=== PATIENT | female | born 1995 | race African-American/Black ===

== ENCOUNTER 2023-11-25 09:55 | Outpatient (RCR) | payer OTHER, SELFPAY ==
--- NOTE | 2023-11-25 11:38 | OT.OP.DC ---
Visit Care Team Role Provider Type Gus Espinoza MD Family Provider Non-Staff Primary Care Provider Address: [address] [place] [address], [id number] Email: Yonatan Elena Attending Provider Non-Staff Referring Provider Address: [address] [place] [address], [place], [address] Email: OT Outpatient OT Outpatient Adult Evaluation Start: 11/25/23 10:58 Freq: Status: Active Protocol: Document 11/25/23 10:59 AMS (Rec: 11/25/23 11:37 AMS [id number]) General Information - Adult Visit Information Insurance Information Prime Session Time Visit Start Time 10:15 Visit Stop Time 10:45 Setting Treatment Setting Outpatient Care Visit Type Note Type Initial Evaluation Identification Identification Confirmed Yes Identification Confirmed By Self Assessment/Plan Assessment Treatment Assessment Nathalie is 28 years old, R hand dominant, and referred to outpatient OT secondary to diagnosis of CTS. 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 She was given B night splints for CTS and medication for swelling approximately 2 weeks ago. Pain Assessment Grid was completed; indication of 7 out of 10 on pain scale relative to bilateral shoulders and R hip. Nathalie indicated that she has outpatient PT (which is addressing these areas of pain /discomfort). Hand/Wrist Pain Assessment Grid was also completed; indication of 6-7 out of 10 on pain scale relative to bilateral volar/ dorsal wrists, bilateral volar /dorsal thumbs, and volar/ dorsal fingers PIPJs of 2-5 digits bilaterally to tips of fingers. QuickDASH UE Outcome Measure Score = 68.18. QuickDASH Work Module Score ( logistics, carrying boxes, typing - going to be getting a gel pad, at home cooking- Mac and Cheese/grating cheese, use of cast iron pans, carries grocery bags across forearms) = 75.00. (-) B Tinel's; (-) reverse Phalen's test. Goniometer measurements = 0-60 degrees bilateral active wrist flexion; 0-62 degrees active R wrist ext; 0-66 degress active L wrist ext; 0- 30 degrees active R wrist UD; 0-26 degrees active L wrist UD ; 0-20 degrees active L wrist [address]; 0-[address] R [address]. MMT Findings= 4+/5 MMT R wrist flex vs 4-/5 MMT L wrist flex; 3+/5 MMT R wrist ext vs 4/5 MMT L wrist ext; 4+ /[address] vs 4-/[address]; 4/5 MMT R wrist UD vs 4+/5 MMT L wrist UD. Dynamometer II Plug Making Operator Strength Findings= 53.0# of force R front end web developer (compared to 30-34 y.o. women 78.7 +/- 19.2) vs 30.0# of force L front end web developer (compared to 30-34 y.o. women 68.0 +/- 17.7 ). Dynamometer II Plug Making Operator Strength Findings w/ Elbow Ext = 60.0# of force R front end web developer vs 40. 0# of force L front end web developer. Pinchometer Strength Findings: 22.0# of force R lateral garcia pinch (compared to 30-34 y.o. women 18.7 +/- 3.0) vs 15.0# of force L lateral garcia pinch ( compared to 30-34 y.o. women 17.8 +/- 3.6); 13.0# of force R 3-jaw pinch (compared to 30- 34 y.o. women 19.3 +/- 5.0) vs 8.0# of force L 3-jaw pinch ( compared to 30-34 y.o. women 18.1 +/- 4.8); 10.0# of force R tip pinch (compared to 30-34 y.o. women 12.6 +/- 3.0) vs 8 .0# of force L tip pinch ( compared to 30-34 y.o. women 11.7 +/- 2.8). (-) tightness bilateral hook fist. Instructed in passive wrist stretches w/ reported preference for elbow flex; rec 20-30 sec hold each x 1 rep daily; median nerve glides x 5 reps daily; myofascial thumb adductor stretch x 1, bilateral, w/ 20-30 sec stretch daily; carpal ligament myofascial stretch at wall x 1 bilateral, w/ 20-30 sec hold daily. Nathalie denied questions and/or need for additional appointments; rec discharge from outpatient OT at this time. Plan Patient Recommendations Discharge from Occupational Therapy Functional Wrist/Hand Scan Hand Side Sensory Assessment Sensory Profile2
== END 2023-12-05 08:40 | disposition home or self-care (01) ==
LOC: OT 09:55
PROVIDERS: Family Provider Student in an Organized Health Care Education/Training Program; PCP Student in an Organized Health Care Education/Training Program
DX: G56.00 Carpal tunnel syndrome, unspecified upper limb (principal)
CPT/HCPCS: 97165

== ENCOUNTER → 2024-03-09 11:11 | Outpatient (CLI) | payer OTHER, SELFPAY ==
[2024-03-09 11:49] LABS: Add Manual Diff / Slide Review NO; Basophils Absolute Auto 100 /uL (0-100); Basophils Percent Auto 0.5 % (0-2); Eosinophils Absolute Auto 100 /uL (0-450); Eosinophils Percent Auto 0.7 % (2-4); Hematocrit 36.6 % (36-46); Hemoglobin 12.5 g/dL (12.0-16.0); Lymphocytes Absolute Auto 2400 /uL (1100-4500); Lymphocytes Percent Auto 21.1 % (25-40); Mean Corpuscular HGB Conc 34.1 % (30-36); Mean Corpuscular Hemoglobin 27.3 PG (26-34); Mean Corpuscular Volume 79.9 fL (80-100); Monocytes Absolute Auto 700 /uL (0-900); Monocytes Percent Auto 6.4 % (3-14); Neutrophils Absolute Auto 8000 /uL (1500-7000); Neutrophils Percent Auto 71.3 % (50-75); Platelet Count 374 X10^3/uL (150-400); Red Blood Cell Count 4.59 X10^6/uL (4.0-5.2); Red Cell Distribution Width 14.3 % (11.6-14.8); White Blood Cell Count 11.2 X10^3/uL (4.5-11.0)
[2024-03-09 12:42] LABS: Hepatitis B Surface Antigen NEGATIVE s/c (NEGATIVE); Rubella Antibody IgG 74.4 IU/mL (>15)
[2024-03-09 12:58] LABS: HIV 1 & 2 Ab/Ag 4th Gen Combo NEGATIVE (NEGATIVE); Hep C Virus Ab w/Reflex Quant NEGATIVE s/c (NEGATIVE)
[2024-03-10 09:08] LABS: Varicella IgG Antibody Reactive (Non Reactive)
[2024-03-11 06:07] LABS: RPR Screen Non Reactive (Non Reactive)
== END ==
PROVIDERS: Family Provider Student in an Organized Health Care Education/Training Program; PCP Student in an Organized Health Care Education/Training Program; Referring Provider Family Medicine; Visit Provider Family Medicine
DX: Z34.01 Encounter for supervision of normal first pregnancy, first trimester (principal); Z3A.01 Less than 8 weeks gestation of pregnancy
CPT/HCPCS: 36415; 80055; 86787; 86803; 86850; 86900; 86901; 87389

== ENCOUNTER → 2024-06-02 11:51 | Outpatient (CLI) | payer OTHER, SELFPAY ==
--- NOTE | 2024-06-02 11:52 | DI.US.S_ITS ---
PROCEDURE: US OB >= 14 WEEKS FETUS INDICATIONS: Anatomy Scan Complete OUTSIDE/PRIOR DATING DATA: Last menstrual period (LMP): 01/15/24. LMP-based estimated date of delivery (STEVEN): 10/21/24. First dating scan (date and location): 03/09/24. Estimated date of delivery (STEVEN) from first dating scan: 10/19/24. The calculations are made using the most accurate STEVEN of 10/19/24. TECHNIQUE: Real-time scanning was performed of the fetus, with image documentation and biometric measurements. Endovaginal scanning: Not needed COMPARISON: None. FINDINGS: General: A single living intrauterine gestation is present. Presentation: Breech. Placenta: Placental position is posterior , without previa. Amniotic fluid index: 18.0 cm, normal range is 5-24 cm. Single deepest vertical pocket is 5.1 cm. heart rate: 131 beats per minute. Maternal cervical canal: 2.9 cm long. Normal lower limit is 2.5 cm. biometrics: Biparietal diameter: 5.0 cm, 21 weeks 2 days Head circumference: 18.8 cm, 21 weeks 1 day Abdominal circumference: 16.3 cm, 21 weeks 3 days Femur length: 3.4 cm, 20 weeks 4 days Clinically estimated gestational age: 19 weeks 6 days Composite gestational age from present scan: 21 weeks 1 day, appropriate interval growth. Estimated weight and percentile: 395 g, 96 percentile Anatomic survey: Neuro: Ventricles are non-dilated at less than 10 mm. Cisterna magna is normal at 3-11 mm. Cerebellum is normal in size and morphology. Nuchal skin fold: Normal at less than 6 mm between 14-21 weeks gestational age. Face: Nose and lips, facial profile are normal. Spine: No evidence for spina bifida. Heart: 4-chambered heart is present, with normal ventricular outflow tracts. Diaphragm: Diaphragm is intact. Stomach: Left-sided stomach is present. Kidneys: No hydronephrosis. Normal is less than 5 mm in 2nd trimester, less than 7 mm in 3rd trimester. Cord: 3-vessel cord has orthotopic insertion. Bladder: Normal in size. Extremities: All 4 extremities identified. IMPRESSION: Appropriate interval growth. However, current estimated weight is at the 96th percentile for gestational age and therefore limited biometric follow-up for possible macrosomia in several weeks likely is warranted. No anomaly seen. Breech presentation. We strive to produce accurate, complete, and clear reports of imaging services. To assist us in improving patient care, this report was composed using standard report templates and voice recognition software. Therefore, it may contain abnormal punctuation, insertions and/or omissions. Occasional wrong-word or sound-alike substitutions may occur. Though we review the report and make efforts to correct it, we do recommend that the report be read carefully in proper context to recognize any text inaccuracies. Dictated by: Ziyad Martini M.D. on 06/03/2024 at 9:11 Approved by: Ziyad Martini M.D. on 06/03/2024 at 9:17
== END ==
PROVIDERS: Family Provider Student in an Organized Health Care Education/Training Program; PCP Student in an Organized Health Care Education/Training Program; Referring Provider Family Medicine; Visit Provider Family Medicine
DX: Z34.92 Encounter for supervision of normal pregnancy, unspecified, second trimester (principal); Z3A.21 21 weeks gestation of pregnancy
CPT/HCPCS: 76811

== ENCOUNTER → 2024-06-30 10:57 | Outpatient (CLI) | payer OTHER, SELFPAY ==
[2024-06-30 12:50] LABS: Hematocrit 33.6 % (36-46); Hemoglobin 11.6 g/dL (12.0-16.0)
[2024-06-30 13:06] LABS: HEMOLYSIS < 15 (0-50); Iron 75 ug/dL (37-170)
[2024-06-30 13:09] LABS: GTT (PREG) 1 Hour PP 50gm Dose 90 mg/dL (76-139)
[2024-06-30 13:09] LABS: Magnesium 1.7 mg/dL (1.6-2.3)
[2024-06-30 13:17] LABS: Percent Iron Saturation 17 % (15-50); Total Iron Binding Capacity 433 ug/dL (265-497); Transferrin 369 mg/dL (206-381)
[2024-06-30 13:43] LABS: Ferritin 8 ng/mL (6-137)
== END ==
PROVIDERS: Family Provider Student in an Organized Health Care Education/Training Program; PCP Student in an Organized Health Care Education/Training Program; Referring Provider Family Medicine; Visit Provider Family Medicine
DX: Z34.00 Encounter for supervision of normal first pregnancy, unspecified trimester (principal); Z3A.24 24 weeks gestation of pregnancy
CPT/HCPCS: 36415; 82728; 82950; 83540; 83550; 83735; 85014; 85018

== ENCOUNTER → 2024-07-15 12:49 | Outpatient (CLI) | payer OTHER, SELFPAY ==
--- NOTE | 2024-07-15 12:50 | DI.US.S_ITS ---
PROCEDURE: US OB LIMITED INDICATIONS: MACROSOMIA DURING OUTSIDE/PRIOR DATING DATA: Last menstrual period (LMP): 01/15/2024. LMP-based estimated date of delivery (STEVEN): 10/21/2024 First dating scan (date and location): 03/09/2024. Estimated date of delivery (STEVEN) from first dating scan: 10/19/2024. The calculations are made using the working STEVEN of 10/21/2024. TECHNIQUE: Real-time scanning was performed of the fetus, with image documentation. Endovaginal scanning: No COMPARISON: None. FINDINGS: A single living intrauterine gestation is present. Presentation: Vertex. Placenta: Placental position is posterior, without previa. Amniotic fluid index: 17.5 cm, normal range is 5-24 cm. Single deepest vertical pocket is 5.6 cm. heart rate: 135 beats per minute. Maternal cervical canal: Not well seen BPD: 6.9 cm, 27 week 6 day HC: 25.3 cm, 27 week 3 day AC: 21.6 cm, 26 week 1 day FL: 4.9 cm, 26 week 4 day Clinically estimated gestational age: 26 week 0 day Estimated gestational age from initial scan: 27 week 0 day EGA: 944 g, 60 percentile. IMPRESSION: Single live intrauterine consistent with 26 week 0 day gestation Approved by: Johnny Ritchie M.D. on 07/15/2024 at 16:41
== END ==
PROVIDERS: Family Provider Student in an Organized Health Care Education/Training Program; PCP Student in an Organized Health Care Education/Training Program; Referring Provider Family Medicine; Visit Provider Family Medicine
DX: O36.62X0 Maternal care for excessive fetal growth, second trimester, not applicable or unspecified (principal); Z3A.26 26 weeks gestation of pregnancy
CPT/HCPCS: 76815

== ENCOUNTER → 2024-09-29 10:39 | Outpatient (CLI) | payer OTHER, SELFPAY ==
[2024-09-30 12:21] LABS: Strep Grp B PCR NEG for Grp B Strep
== END ==
PROVIDERS: Family Provider Student in an Organized Health Care Education/Training Program; PCP Student in an Organized Health Care Education/Training Program; Visit Provider Family Medicine
DX: Z34.93 Encounter for supervision of normal pregnancy, unspecified, third trimester (principal); Z3A.36 36 weeks gestation of pregnancy
CPT/HCPCS: 87653

== ENCOUNTER 2024-10-21 08:02 | Inpatient (IN) | payer OTHER, SELFPAY ==
[2024-10-21] VITALS (9 sets, daily range): BP systolic 137–191; BP diastolic 64–113; PULSE 51–87
[2024-10-21 09:37] LABS: Add Manual Diff / Slide Review NO; Hematocrit 37.3 % (36-46); Hemoglobin 12.5 g/dL (12.0-16.0); Lymphocytes Absolute Auto 1700 /uL (1100-4500); Mean Corpuscular HGB Conc 33.4 % (30-36); Mean Corpuscular Hemoglobin 23.5 PG (26-34); Mean Corpuscular Volume 70.3 fL (80-100); Platelet Count 306 X10^3/uL (150-400)
[2024-10-21 09:44] LABS: Alanine Aminotransferase 12 IU/L (<35); Albumin 3.8 g/dL (3.5-5.0); Albumin Globulin Ratio 1.1 (1.0-2.8); Alkaline Phosphatase 220 U/L (38-126); Blood Urea Nitrogen 4 mg/dL (7-17); Calcium 9.2 mg/dL (8.4-10.2); Carbon Dioxide 19 mmol/L (22-32); Chloride 106 mmol/L (98-107); Estimated Glomerular Filt Rate > 60 mL/min (>60); Globulin 3.6 g/dL (1.7-4.1); Glucose 107 mg/dL (70-99); HEMOLYSIS < 15 (0-50); Potassium 3.5 mmol/L (3.4-5.1); Sodium 136 mmol/L (137-145); Total Protein 7.4 g/dL (6.3-8.2); Uric Acid 5.3 mg/dL (2.5-6.2)
--- NOTE | 2024-10-21 09:51 | PM.OBHP.IH.1 ---
OB HPI Date/Time Date of admission: 10/21/24 Date Patient Seen: 10/21/24 History of Present Condition Chief complaint: INDUCTION STEVEN Calculator Estimated Delivery Date Method Current WG Current Estimate 10/21/24 LMP (Certain) 40w 0d Other Estimates 10/19/24 Ultrasound #1 40w 2d Estimated Gestational Age (weeks): 40 : 1 Para: 0 Narrative: 29-year-old at GA 40+0 weeks presenting for eIOL. Endorses normal movement. Denies vaginal bleeding or denies leakage of fluid. course notable for obesity, recent moderately elevated BP at most recent visit yesterday. care: good care Ultrasounds: normal 1st trimester US and normal mid trimester US Preadmission Labs Last OB Lab Results: Blood Type O Positive Today, 08:45 Antibody Screen Negative Today, 08:45 Hct, (36-46) 32.8 % L Today, 16:18 Hgb, (12.0-16.0) 11.2 g/dL L Today, 16:18 Hep Bs Antigen, (NEGATIVE) Negative s/c 03/09/24, 11:19 Hepatitis C Antibody, (NEGATIVE) Negative s/c 03/09/24, 11:19 Rubella Antibody, (>15) 74.4 IU/mL 03/09/24, 11:19 VZV IgG Antibody, (Non Reactive) Reactive 03/09/24, 11:19 Glucose 1 Hr 50 gm, (76-139) 90 mg/dL 06/30/24, 11:02 Group B Strep (PCR) Neg for grp b strep 09/29/24, 10:39 Evaluation Evaluation Baseline heart rate: 120 Variability: Moderate (6-25) monitor accelerations: Present Monitor Decelerations: Absent Category of Tracing: Reactive Status: Category l Dilation: 1-2 cm Effacement: 40-50% station: -3 Position of cervix: posterior Consistency: soft Hooks score: 4 PFSH Medical History (Updated 10/20/24 @ 10:39 by Ruiz Palm MD) 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 Surgical History (Updated 03/04/24 @ 08:42 by Kiki Whitley RN) History of lingual frenotomy [place] teeth extracted Social History marital status: unmarried,living together household members: significant other and family (S/O's sister) lives independently: Yes caregiver/support person: No housing: house pets and animals: Yes (dogs, cat; pt doesn't manage litter box) education level: college (some college) 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[employer], 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) current occupational exposures/hazards: No special erica needs: No travel 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: 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[place], 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) seatbelt use: always water heater temp set < 120 deg: Yes working smoke detector in home: Yes fire extinguisher in home: Yes carbon monox detector in home: Yes firearms in home: Yes firearms unloaded and locked: Yes do you feel safe at home: Yes Smoking Status: Never smoker second hand exposure: No alcohol intake: former (~2 glasses wine/week when not ) substance use type: does not use during the past year weight has: other (wide fluctuations) well-balanced diet: rarely or never daily servings fruits/ve-1 caffeine: Yes (aware of 200mg limit) Type(s) of exercise: resistance training Meds Home Medications and Allergies Home Medications ?Medication ?Instructions ?Recorded ?Confirmed ?Type vit no.95-ferrous 1 tab PO DAILY 03/04/24 10/21/24 History fumarate 28 mg-folic acid 800 mcg tablet ( Multivitamins) vitamin D3 25 mcg (1,000 unit)-vit 2 tab PO DAILY 03/04/24 10/21/24 History K2 90 mcg disintegrating tablet (D3 Plus K2 Dots) ondansetron 4 mg disintegrating 4 mg PO Q8H PRN nausea and 04/07/24 10/21/24 Rx tablet vomiting #20 tabs pyridoxine (vitamin B6) 50 mg 50 mg PO TID #90 tabs 04/07/24 10/21/24 Rx tablet ferrous sulfate 325 mg (65 mg 325 mg PO Q OTHER DAY #60 tabs 08/03/24 10/21/24 Rx iron) tablet omeprazole 20 mg capsule,delayed 20 mg PO BID #60 caps 09/29/24 10/21/24 Rx release Allergies Allergy/AdvReac Type Severity Reaction Status Date / Time Penicillins Allergy Intermediate Hives Verified 10/21/24 10:41 Review of Systems Review of Systems ROS: Yes All systems reviewed with the patient and are negative except as otherwise documented OB Exam Narrative Exam Narrative: General: Well-nourished, no distress HEENT: NC/AT, EOMI, moist mucous membranes CV: RRR, normal S1 S2, no m/g/r Resp: CTAB Abd: Gravid, soft, NTND, +BS Ext: Full ROM, no edema Skin: No rash or lesions Neuro: A&O x3, normal tone, no focal deficits Objective Labs 10/21/24 16:18 10/21/24 16:18 Labs: Laboratory Results - last 24 hr 10/21/24 08:45 WBC 8.9 RBC 5.30 H Hgb 12.5 Hct 37.3 MCV 70.3 L MCH 23.5 L MCHC 33.4 RDW 15.8 H Plt Count 306 Neut % (Auto) 76.8 H Lymph % (Auto) 19.4 L [place] % (Auto) 3.0 Eos % (Auto) 0.3 L Baso % (Auto) 0.5 Neut # (Auto) 6800 Lymph # (Auto) 1700 [place] # (Auto) 300 Eos # (Auto) 0 Baso # (Auto) 0 Sodium 136 L Potassium 3.5 Chloride 106 Carbon Dioxide 19 L BUN 4 L Creatinine 0.54 Estimated GFR > 60 BUN/Creatinine Ratio 7.4 Glucose 107 H Uric Acid 5.3 Calcium 9.2 Total Bilirubin 1.2 AST 26 ALT 12 Alkaline Phosphatase 220 H Total Protein 7.4 Albumin 3.8 Globulin 3.6 Albumin/Globulin Ratio 1.1 Assessment and Plan Assessment and Plan Assessment and Plan narrative: 29-year-old at GA 40+0 weeks presenting for eIOL. notable for obesity, late onset moderately elevated BP. -admit to L&D -cervical ripening with misoprostol q4h -GBS negative, ppx not indicated -pain control prn if desired by patient -PPH risk low -VTE risk low, SCDs with epidural -anticipate vaginal delivery Time-Based Coding :: 20 minutes spent with patient and on the chart (including review of chart, obtaining history, exam, reviewing outside data, placing orders, documenting exam and treatment plan, and counseling patient) on 10/21/2024.
[2024-10-21 11:46] LABS: Protein (Total) Urine Random 13 mg/dL (0-12); Protein Creatinine Ratio Urine 0.29 GRAM/24H
[2024-10-21] MEDS: LABETALOL 20 MG/4 ML SYRINGE IV ×2 (14:53→19:34)
[2024-10-21] MEDS: ACETAMINOPHEN 325 MG TABLET 975 MG PO (15:27)
[2024-10-21] MEDS: LABETALOL 20 MG/4 ML SYRINGE 40 MG IV ×2 (16:12→20:19)
[2024-10-21 16:28] LABS: Add Manual Diff / Slide Review NO; Hematocrit 32.8 % (36-46); Hemoglobin 11.2 g/dL (12.0-16.0); Lymphocytes Absolute Auto 1800 /uL (1100-4500); Mean Corpuscular HGB Conc 34.0 % (30-36); Mean Corpuscular Hemoglobin 23.8 PG (26-34); Mean Corpuscular Volume 70.0 fL (80-100); Platelet Count 287 X10^3/uL (150-400)
[2024-10-21] MEDS: LABETALOL 20 MG/4 ML SYRINGE 80 MG IV (16:35)
[2024-10-21 16:42] LABS: Alanine Aminotransferase 11 IU/L (<35); Albumin 3.1 g/dL (3.5-5.0); Albumin Globulin Ratio 1.0 (1.0-2.8); Alkaline Phosphatase 187 U/L (38-126); Blood Urea Nitrogen 4 mg/dL (7-17); Calcium 8.7 mg/dL (8.4-10.2); Carbon Dioxide 19 mmol/L (22-32); Chloride 108 mmol/L (98-107); Estimated Glomerular Filt Rate > 60 mL/min (>60); Globulin 3.2 g/dL (1.7-4.1); Glucose 104 mg/dL (70-99); HEMOLYSIS < 15 (0-50); Potassium 3.3 mmol/L (3.4-5.1); Sodium 134 mmol/L (137-145); Total Protein 6.3 g/dL (6.3-8.2); Uric Acid 4.9 mg/dL (2.5-6.2)
[2024-10-21] MEDS: LABETALOL 100 MG TABLET 200 MG PO ×2 (17:14→19:28)
[2024-10-21 18:40] LABS: Protein (Total) Urine Random 7 mg/dL (0-12); Protein Creatinine Ratio Urine 0.03 GRAM/24H
[2024-10-21] MEDS: ONDANSETRON 4 MG/2 ML INJ IV (20:00)
--- NOTE | 2024-10-21 20:33 | P.PCN_ITS ---
Regional Block Pre-procedure Procedure: Continuous Lumbar Epidural for L&D Attending OB provider: Ruiz Palm PMH/ROS narrative: term IOL for PIH diagnosed today. BP's today 130-160's/60-70's, on PO and IV labetalol. BP, 163/81 on my arrival, increased to 195/99 during prep and positioning for epidural. Labetolol 20mg IV administered, OB attending notified. BP to 147/86 after placement of CSE. No laboratory or clinical evidence of pre- ecclampsia (no proteinuria, AST/ALT normal, Alk Phos mildly elevated, platelets 287, creatinine 0.5). ASA 3 for severe hypertension in a previously uncomplicated . ASA Class: III Labs: Hct 32.8 % (36-46) L 10/21/24 16:18 Plt Count 287 X10^3/uL (150-400) 10/21/24 16:18 Medications: Current Medications Generic Name Dose Route Start Last Admin Trade Name Freq PRN Reason Stop Dose Admin Carboprost Tromethamine 250 mcg 10/21/24 09:50 Carboprost 250 Mcg/Ml Ampul IM Q90M PRN Bleeding Oxytocin/Lactated Ringer's 30 unit in 500 mls @ 200 mls/hr 10/21/24 09:50 Oxytocin Premix IV CONT PRN Bleeding Protocol Tranexamic Acid 1,000 mg/ 100 mls @ 600 mls/hr 10/21/24 09:50 Sodium Chloride IV NOW PRN Bleeding Oxytocin/Lactated Ringer's 30 unit in 500 mls @ 2 mls/hr 10/21/24 10:00 Oxytocin Premix IV TITRATE NEERU Protocol 2 MILLIUNIT/MIN Lidocaine HCl 20 ml 10/21/24 09:50 Lidocaine 1% 20 Ml INJ INTRA-OP PRN Post Delivery Methylergonovine Maleate 0.2 mg 10/21/24 09:50 Methylergonovine 0.2 Mg Tablet PO Q6HR PRN Heavy Bleeding Methylergonovine Maleate 0.2 mg 10/21/24 09:50 Methylergonovine 0.2 Mg/Ml Vial IM NOW PRN Bleeding Mineral Oil 30 ml 10/21/24 09:50 Mineral Oil 30 Ml Udc TOP PRN PRN Version Misoprostol 800 mcg 10/21/24 09:50 Misoprostol 200 Mcg Tablet OR NOW PRN Bleeding Misoprostol 400 mcg 10/21/24 09:50 Misoprostol 200 Mcg Tablet SL NOW PRN Bleeding Misoprostol 50 mcg 10/21/24 09:50 10/21/24 18:01 Misoprostol 25 Mcg Tablet PO 50 mcg Q4H PRN Administration cervical ripening Naloxone HCl 0.2 mg 10/21/24 09:50 Naloxone 0.4 Mg/Ml Vial IV Q2MIN PRN Opiate Reversal Oxytocin 10 unit 10/21/24 09:50 Oxytocin 10 Unit/Ml Vial IM NOW PRN Bleeding Allergies: Allergies Allergy/AdvReac Type Severity Reaction Status Date / Time Penicillins Allergy Intermediate Hives Verified 10/21/24 10:41 Procedure Insertion date: 10/21/24 Insertion time: 20:16 Prep/Local: betadine x3 and 1% lidocaine Interspace: L34 Patient position: sitting Needle: 18 gauge Medical Metrx Solutionstead (CSE:27g pencan through Hustead, clear CSF, 1mL 0.25% MPF bupiv) Loss of resistance with: saline YARA at (cm): 5 Catheter placed at SKIN (cm): 10 Catheter in SPACE (cm): 5 Insertion: No CSF, No Blood, No Paresthesia with insertion, No Paresthesia with injection and No Test dose reaction Initial Medications TEST DOSE time: 20:17 TEST DOSE: 1.5% lidocaine with epinephrine 1:200k (mL): 3 BOLUS DOSE time: 20:22 BOLUS DOSE (mL): 4 BOLUS DOSE med: other (infusate) Infusion INFUSION: 0.125% bupivacaine and with fentanyl 2 mcg/mL Initial rate (mL/hr): 10 Post-procedure Anesthesia date START: 10/21/24 Anesthesia time START: 20:00 Anesthesia date END: 10/22/24 Anesthesia time END: 00:20 Post-procedure Anesthesia Assessment: Yes CV function: HR/BP stable, Yes Resp function: RR/sat/airway adequate, Yes Post-op hydration adequate, Yes Pain control adequate, Yes Nausea & vomiting absent, Yes Temperature > 36 C, Yes Mental status appropriate and No Anesthesia complications
[2024-10-21] MEDS: hydrALAZINE 20 MG/ML VIAL 5 MG IV (20:55)
--- NOTE | 2024-10-21 21:35 | PM.OBPNLAB ---
Date/Time Date Patient Seen: 10/21/24 Time Patient Seen: 21:05 Pain Control Pain control: epidural Comments: Called to bedside by RN due to prolonged decel to 60bpm after placement of epidural. Maternal BP difficult to control having received multiple IV and oral doses of labetalol thus far. Pelvic Exam Dilation (cm): 7 Effacement (%): 90 station: -2 Amniotic membrane status: Ruptured Comments: AROM w/clear fluid Contractions Contraction frequency (min): 3 Contraction duration (min): 1 Contraction pattern: Regular Status status: Category ll Heart Rate Baseline: 115 Monitor Accelerations: Present Monitor Decelerations: Early and Prolonged Monitor Variability: Moderate Comments: Prolonged decel to todd 60 bpm 20:08-20:24 and again from 20:47-20:53 with good recovery. In both instances maternal HR matches tracing indicating potential for inaccurate reading. Currently with multiple accels and recurrent early decels indicating head compression. Assessment and Plan Assessment: active labor Comments: 29yo G1 at GA 40+0 weeks. MWB: Comfortable with epidural. Multiple severe range BP difficult to control with IV and oral labetalol. Has responded well to hydralazine 5mg IV. PIH labs normal x2, repeat urine P/C pending due to suspected contaminated result. Denies clinical preE sxs including GARRISON, visual changes, SOB, RUQ pain. FWB: Cat 2 FHT with apparent prolonged decel to todd 60bpm x2 after epidural with recovery to baseline. Maternal HR concurrently traced at 60bpm indicating possibility of inaccurate HR. Has since recovered well to baseline 115bpm with multiple accels and early decels over past hour. Labor: Active labor at 7cm after AROM with clear fluid. Continue current management with close monitoring of BP and PIH labs for need to initiate MgSO4 drip. Progressing toward vaginal delivery at this time.
[2024-10-21 22:16] LABS: Protein (Total) Urine Random 50 mg/dL (0-12); Protein Creatinine Ratio Urine 0.21 GRAM/24H
[2024-10-22] MEDS: OXYTOCIN PREMIX 30 UNIT/500 ML PLAST..BAG 200 UNIT IV (00:12)
[2024-10-22] MEDS: hydrALAZINE 20 MG/ML VIAL 5 MG IV (00:15)
[2024-10-22] MEDS: MAGNESIUM SULFATE 4 GM/100 ML PIGGYBACK IV (00:58)
--- NOTE | 2024-10-22 00:58 | P.PCNOB_ITS ---
Labor & Delivery Delivery date: 10/22/24 Delivery Time: 00:09 Intrapartal Events: Severe Preeclampsia and Deceleration Induction method: per pitocin protocol Delivery augmentation: rupture of membranes Delivery monitor: external FHT and external uterine Route of delivery: and vacuum extraction Indication for instrumentation: nonreassuring FHR tracing L&D Laceration Description: Periurethral - 1st Degree and Perineal - 2nd Degree Delivery repair: chromic Estimated blood loss (mL): 250 Anesthesia Type: Epidural Narrative: Patient fully dilated at 23:17 and began pushing at 23:18. Patient pushed effectively but prolonged bradycardia noted and so patient was consented for vacuum assisted delivery. The baby's head was confirmed to be in the OA position with 100% effacement and +2 station. The vacuum was placed and the correct placement in front of the posterior fontanelle was confirmed digitally. With the patient's next contraction, the vacuum was inflated and a gentle downward pressure was used to assist with bringing the baby's head to a +4 station. The vacuum was applied for a total of 8 minutes with 3 pop-offs. The baby's head then delivered atraumatically. Spontaneous vaginal delivery of a viable male in the OA position occurred at 00:09. A loose nuchal x1 was encountered and easily reduced before delivery of the body. The was suctioned and stimulated at the perineum, and gave appropriate cry but was pale with poor tone. Delayed cord clamping was observed for 30 seconds. The cord was clamped and cut, and the handed to the waiting team for brief suction and stimulation. Cord blood and segment were obtained. The placenta was delivered without difficulty using gentle cord traction and found to be intact with a 3-vessel cord. After fundal massage the uterus was firm a nd bleeding stopped. The vagina and cervix were examined for lacerations. A second-degree perineal laceration was noted and repaired with 3-0 chromic suture in the usual fashion. A first-degree left periurethral laceration was hemostatic. Patient stable with rooming in, bonding skin to skin and attempting to breastfeed. [place] Baby 1: Infant gender: Male Presentation: vertex Placenta delivery description: Spontaneous Cord Vessel Description: 3 Vessels, Nuchal Cord and Loose score (1 min): 5 score (5 min): 9 weight: 6 lb 11.938 oz Plan for aftercare: Routine care and Other (Patient continued to spike severe range BP. IV MgSO4 initiated x24 hours .)
[2024-10-22] MEDS: LACTATED RINGERS 1,000 ML 100 ML IV (01:18)
[2024-10-22] MEDS: ONDANSETRON 4 MG/2 ML INJ IV (01:30)
[2024-10-22] MEDS: MAGNESIUM SULFATE 20 GM/500 ML IV.SOLN IV ×2 (01:43→14:30)
[2024-10-22 02:22] VITALS: BP 158/82; PULSE 73
[2024-10-22] MEDS: hydrALAZINE 20 MG/ML VIAL 10 MG IV (02:22)
[2024-10-22 06:53] LABS: Hematocrit 33.3 % (36-46); Hemoglobin 11.3 g/dL (12.0-16.0)
[2024-10-22 07:18] LABS: Alanine Aminotransferase 11 IU/L (<35); Albumin 3.2 g/dL (3.5-5.0); Albumin Globulin Ratio 1.0 (1.0-2.8); Alkaline Phosphatase 232 U/L (38-126); Blood Urea Nitrogen 3 mg/dL (7-17); Calcium 8.0 mg/dL (8.4-10.2); Carbon Dioxide 19 mmol/L (22-32); Chloride 104 mmol/L (98-107); Estimated Glomerular Filt Rate > 60 mL/min (>60); Globulin 3.2 g/dL (1.7-4.1); Glucose 81 mg/dL (70-99); HEMOLYSIS < 15 (0-50); Potassium 3.5 mmol/L (3.4-5.1); Sodium 131 mmol/L (137-145); Total Protein 6.4 g/dL (6.3-8.2)
[2024-10-22] MEDS: DERMOPLAST SPRAY 20% 60 ML 1 SPRAY TOP (07:19)
[2024-10-22] MEDS: ACETAMINOPHEN 325 MG TABLET 650 MG PO ×3 (07:20→18:27)
[2024-10-22] MEDS: LANOLIN OINT 7 GM 1 APPLIC TOP (07:20)
[2024-10-22 07:26] LABS: Magnesium 13.1 mg/dL (1.6-2.3)
[2024-10-22 08:01] LABS: Magnesium 4.0 mg/dL (1.6-2.3)
[2024-10-22] MEDS: IBUPROFEN 600 MG TABLET PO ×2 (12:37→18:27)
--- NOTE | 2024-10-22 13:09 | PM.OBPN.1 ---
Subjective - OB Subjective Patient comments: no complaints, pain well controlled, tolerating diet and flatus present baby status: doing well [place] feeding status: exclusively breast feeding Date Patient Seen: 10/22/24 Time Patient Seen: 12:30 Exam Narrative Exam Narrative: General: Well-appearing, well-nourished, no distress HEENT: Moist mucous membranes, no pallor CV: Regular rate and rhythm, no murmur auscultated Resp: CTAB, comfortable work of breathing Abdomen: Soft, bowel sounds present, fundus firm below umbilicus with appropriate tenderness Extremities: No edema, no calf tenderness or evidence of DVT Objective Labs 10/22/24 06:27 10/22/24 06:27 Labs: Laboratory Results - last 24 hr 10/21/24 10/21/24 10/22/24 16:18 21:15 06:27 WBC 8.3 RBC 4.69 Hgb 11.2 L 11.3 L Hct 32.8 L 33.3 L MCV 70.0 L MCH 23.8 L MCHC 34.0 RDW 16.0 H Plt Count 287 Neut % (Auto) 71.2 Lymph % (Auto) 21.5 L [place] % (Auto) 6.2 Eos % (Auto) 0.4 L Baso % (Auto) 0.7 Neut # (Auto) 6000 Lymph # (Auto) 1800 [place] # (Auto) 500 Eos # (Auto) 0 Baso # (Auto) 100 Sodium 134 L 131 L Potassium 3.3 L 3.5 Chloride 108 H 104 Carbon Dioxide 19 L 19 L BUN 4 L 3 L Creatinine 0.50 L 0.47 L Estimated GFR > 60 > 60 BUN/Creatinine Ratio 8.0 6.4 Glucose 104 H 81 Uric Acid 4.9 Calcium 8.7 8.0 L Magnesium 13.1 H* Total Bilirubin 0.9 1.3 AST 20 25 ALT 11 11 Alkaline Phosphatase 187 H 232 H Total Protein 6.3 6.4 Albumin 3.1 L 3.2 L Globulin 3.2 3.2 Albumin/Globulin Ratio 1.0 1.0 U Random Total Protein 7 50 H Urine Creatinine 220.72 228.53 Protein/Creatinin Ratio 0.03 0.21 10/22/24 07:40 WBC RBC Hgb Hct MCV MCH MCHC RDW Plt Count Neut % (Auto) Lymph % (Auto) [place] % (Auto) Eos % (Auto) Baso % (Auto) Neut # (Auto) Lymph # (Auto) [place] # (Auto) Eos # (Auto) Baso # (Auto) Sodium Potassium Chloride Carbon Dioxide BUN Creatinine Estimated GFR BUN/Creatinine Ratio Glucose Uric Acid Calcium Magnesium 4.0 H Total Bilirubin AST ALT Alkaline Phosphatase Total Protein Albumin Globulin Albumin/Globulin Ratio U Random Total Protein Urine Creatinine Protein/Creatinin Ratio Assessment & Plan Plan day: 1 plan OB: routine care Comments: Severe range BP during labor wo other lab or clinical sxs of preeclampsia. Adequately controlled since delivery with nifedipine 10 mg IR x1. On IV MgSO4 out of an abundance of caution, stop at 24h . Likely home tomorrow. Time-Based Coding :: 15 spent with patient and on the chart (including review of chart, obtaining history, exam, reviewing outside data, placing orders, documenting exam and treatment plan, and counseling patient) on 10/22/2024.
[2024-10-22 13:54] LABS: Magnesium 3.9 mg/dL (1.6-2.3)
[2024-10-23] MEDS: ACETAMINOPHEN 325 MG TABLET 650 MG PO ×4 (01:41→22:05)
[2024-10-23] MEDS: IBUPROFEN 600 MG TABLET PO ×4 (01:45→22:05)
[2024-10-23] MEDS: NIFEdipine 30 MG TAB ER PO ×2 (10:14→12:12)
[2024-10-23 12:05] VITALS: BP 173/97; PULSE 68
[2024-10-23] MEDS: hydrALAZINE 20 MG/ML VIAL 5 MG IV ×2 (12:05→13:03)
[2024-10-23 13:03] VITALS: BP 160/94; PULSE 59
[2024-10-23 13:06] VITALS: BP 159/87; PULSE 61
--- NOTE | 2024-10-23 13:44 | PM.OBPN.1 ---
Subjective - OB Subjective Patient comments: no complaints, pain well controlled, tolerating diet and flatus present baby status: doing well [place] feeding status: exclusively breast feeding Date Patient Seen: 10/23/24 Time Patient Seen: 13:44 Interval history: Continues to have intermittent severe range BP without any clinical symptoms preeclampsia. Has received 60 mg XL p.o. and total of 10 mg hydralazine thus far this morning. Exam Vital Signs (past 8 hours): - 10/23/24 12:05 10/23/24 13:03 10/23/24 13:06 Pulse Rate 68 59 L 61 Blood Pressure 173/97 H 160/94 H 159/87 H Narrative Exam Narrative: General: Well-appearing, well-nourished, no distress HEENT: Moist mucous membranes, no pallor CV: Regular rate and rhythm, no murmur auscultated Resp: CTAB, comfortable work of breathing Abdomen: Soft, bowel sounds present, fundus firm below umbilicus with appropriate tenderness Extremities: No edema, no calf tenderness or evidence of DVT Objective Labs 10/23/24 14:00 10/23/24 14:00 Labs: Laboratory Results - last 24 hr 10/22/24 13:33 Magnesium 3.9 H Assessment & Plan Plan day: 2 Comments: - Persistent severe range BP s/p IV MgSO4 x24 hours PP - Has received a total of 60mg nifedipine XL and 10mg hydralazine IV thus far today - Dr. Townsend consulted, recommends addition of labetalol due to wide pulse pressures indicating hyperdynamic state - Repeat PIH labs, restart MgSO4 if abnormal, new sxs arise, or persistent severe BP - Possible D/C home tomorrow pending adequate BP control Time-Based Coding :: 25 minutes spent with patient and on the chart (including review of chart, obtaining history, exam, reviewing outside data, placing orders, documenting exam and treatment plan, and counseling patient) on 10/23/2024.
[2024-10-23 14:07] LABS: Add Manual Diff / Slide Review NO; Hematocrit 31.7 % (36-46); Hemoglobin 10.8 g/dL (12.0-16.0); Lymphocytes Absolute Auto 2400 /uL (1100-4500); Mean Corpuscular HGB Conc 34.1 % (30-36); Mean Corpuscular Hemoglobin 23.8 PG (26-34); Mean Corpuscular Volume 69.8 fL (80-100); Platelet Count 302 X10^3/uL (150-400)
[2024-10-23 14:17] LABS: Anisocytosis 1+
[2024-10-23 14:18] LABS: Microcytosis 1+
[2024-10-23 14:19] LABS: Alanine Aminotransferase 13 IU/L (<35); Albumin 3.2 g/dL (3.5-5.0); Albumin Globulin Ratio 1.0 (1.0-2.8); Alkaline Phosphatase 179 U/L (38-126); Blood Urea Nitrogen 3 mg/dL (7-17); Calcium 8.6 mg/dL (8.4-10.2); Carbon Dioxide 21 mmol/L (22-32); Chloride 108 mmol/L (98-107); Estimated Glomerular Filt Rate > 60 mL/min (>60); Globulin 3.1 g/dL (1.7-4.1); Glucose 99 mg/dL (70-99); HEMOLYSIS < 15 (0-50); Potassium 3.4 mmol/L (3.4-5.1); Sodium 137 mmol/L (137-145); Total Protein 6.3 g/dL (6.3-8.2)
[2024-10-23 15:35] VITALS: BP 143/82; PULSE 65
[2024-10-23] MEDS: LABETALOL 100 MG TABLET 200 MG PO ×2 (15:35→20:41)
[2024-10-23 20:41] VITALS: BP 146/82; PULSE 63
[2024-10-24] MEDS: IBUPROFEN 600 MG TABLET PO ×2 (04:21→10:18)
[2024-10-24] MEDS: ACETAMINOPHEN 325 MG TABLET 650 MG PO ×2 (04:21→10:18)
[2024-10-24 08:56] VITALS: BP 135/79; PULSE 68
[2024-10-24] MEDS: LABETALOL 100 MG TABLET 200 MG PO ×2 (08:56→14:03)
[2024-10-24] MEDS: NIFEdipine 30 MG TAB ER PO (08:57)
--- NOTE | 2024-10-24 12:20 | PM.OBDS.1 ---
Discharge Providers Provider Date of admission: 10/21/24 08:02 Discharge Date: 10/24/24 Primary care physician: Gus Espinoza MD Consults: 10/22/24 02:33 Consult to Information Management Manager Routine Comment: Discharge provider: Ruiz Palm MD Summary Hospital Course Date Patient Seen: 10/24/24 Time Patient Seen: 12:20 Hospital Course: Admitted for IOL on 10/21/2024. Progressed adequately with augmentation to complete dilation over the course of 13 hours. She had a vacuum assisted vaginal delivery of a live male with left first degree periurethral and second degree perineal lacerations. Her course was complicated by persistent severe range BP without lab abnormalities or clinical sxs of preeclampsia. Ultimately she recived IV magnesium sulfate x24 hours and required nifedipine 30mg XL daily + labetalol 200mg TID to achieve adequate BP control. At discharge patient is ambulating well, tolerating normal diet, breast-feeding without difficulty, and pain is adequately controlled. She reports bleeding is slightly heavier than normal menses. Peripartum Data Delivery Method: Assisted Delivery (vacuum) Laceration Description: Periurethral - 1st Degree and Perineal - 2nd Degree 1: Gender: Male Disposition of : home Status at Discharge Cognitive/behavioral status at discharge: at baseline, oriented Functional status at discharge: independent ambulation Overall status at discharge: patient is progressing back to baseline Time Spent with Patient Time attestation: Total time spent providing and/or coordinating discharge services: Time spent: Greater than 30 minutes Objective Labs 10/23/24 14:00 10/23/24 14:00 Labs: Laboratory Results - last 24 hr 10/23/24 14:00 WBC 11.4 H RBC 4.54 Hgb 10.8 L Hct 31.7 L MCV 69.8 L MCH 23.8 L MCHC 34.1 RDW 16.0 H Plt Count 302 Neut % (Auto) 71.5 Lymph % (Auto) 21.0 L Kings % (Auto) 5.2 Eos % (Auto) 1.0 L Baso % (Auto) 1.3 Neut # (Auto) 8200 H Lymph # (Auto) 2400 Kings # (Auto) 600 Eos # (Auto) 100 Baso # (Auto) 100 RBC Morphology See below Anisocytosis 1+ H Microcytosis 1+ H Sodium 137 Potassium 3.4 Chloride 108 H Carbon Dioxide 21 L BUN 3 L Creatinine 0.50 L Estimated GFR > 60 BUN/Creatinine Ratio 6.0 Glucose 99 Calcium 8.6 Total Bilirubin 0.6 AST 28 ALT 13 Alkaline Phosphatase 179 H Total Protein 6.3 Albumin 3.2 L Globulin 3.1 Albumin/Globulin Ratio 1.0 Exam Vital Signs (past 8 hours): - 10/24/24 08:56 Pulse Rate 68 Blood Pressure 135/79 Narrative Exam Narrative: General: Well-appearing, well-nourished, no distress HEENT: Moist mucous membranes, no pallor CV: Regular rate and rhythm, no murmur auscultated Resp: CTAB, comfortable work of breathing Abdomen: Soft, bowel sounds present, fundus firm below umbilicus with appropriate tenderness Extremities: No edema, no calf tenderness or evidence of DVT Discharge Plan Discharge Plan Patient Disposition: Home Discharge orders & Medications Prescriptions: New acetaminophen 325 mg Tablet 650 mg PO Q6H PRN (Reason: Pain, Mild (1-3)) Qty: 90 1RF Dermoplast (with menthol) 20-0.5 % Aerosol 1 spray topical Q1HR PRN (Reason: Pain, Moderate (4-6)) Qty: 78 1RF ibuprofen 600 mg Tablet 600 mg PO Q6H Qty: 90 1RF Purelan Cream 1 applic topical PRN PRN (Reason: Sore Nipples) Qty: 7 6RF polyethylene glycol 3350 17 gram/dose powder 17 g PO DAILY Qty: 510 1RF labetalol 200 mg tablet 200 mg PO TID Qty: 90 0RF nifedipine 30 mg tablet extended release 30 mg PO DAILY Qty: 30 0RF Continued pyridoxine (vitamin B6) 50 mg tablet 50 mg PO TID Qty: 90 2RF ondansetron 4 mg tablet,disintegrating 4 mg PO Q8H PRN (Reason: nausea and vomiting) Qty: 20 1RF ferrous sulfate 325 mg (65 mg iron) tablet 325 mg PO Q OTHER DAY Qty: 60 1RF omeprazole 20 mg capsule,delayed release(DR/EC) 20 mg PO BID Qty: 60 1RF PNV cmb#95-ferrous fumarate-FA [ Multivitamins] 28 mg iron- 800 mcg tablet 1 tab PO DAILY D3 Plus K2 Dots 25 mcg (1,000 unit)-90 mcg tablet,disintegrating 2 tab PO DAILY Follow up/Referrals: Ruiz Palm MD [Physician, Family Practice] Referral Note: will schedule your [address] Palm during baby's first appointment on Thursday 10/26. Gus Espinoza MD [Primary Care Provider, Medical] Visit Report/Discharge Packet Stand Alone Forms: Discharge: Care, Patient Portal/API, Stroke Signs & Symptoms Discharge Data Primary Care Provider: Gus Espinoza Discharges patient from system. Discharge Date/Time: 10/24/24 14:15
[2024-10-24 13:21] VITALS: BP 135/79; PULSE 68
[2024-10-24 14:03] VITALS: BP 146/93; PULSE 57
== END 2024-10-24 14:15 | disposition home or self-care (01) | DRG 807 ==
PROVIDERS: Admitting Provider Family Medicine; Family Provider Student in an Organized Health Care Education/Training Program; PCP Student in an Organized Health Care Education/Training Program; Referring Provider Family Medicine; Visit Provider Family Medicine
DX: O99.42 Diseases of the circulatory system complicating childbirth (principal); Z37.0 Single live birth; R03.0 Elevated blood-pressure reading, without diagnosis of hypertension; O76 Abnormality in fetal heart rate and rhythm complicating labor and delivery; O99.214 Obesity complicating childbirth; Z3A.40 40 weeks gestation of pregnancy; O70.0 First degree perineal laceration during delivery; O70.1 Second degree perineal laceration during delivery
CPT/HCPCS: 36415; 59050; 59200; 59400; 80053; 82570; 83735; 84156; 84550; 85014; 85018; 85025; 86850; 86900; 86901; G0379; J0360; J2405; J2590; J3475

== ENCOUNTER 2025-03-18 07:53 | Emergency (ER) | payer OTHER, SELFPAY ==
--- OUTSIDE RECORDS SUMMARY | 2025-03-18 07:56 | XMS_ITS | Clinical Summary ---
Author Organization [facility] Address [address] [place] [address] Care Team Providers Care Senior Communications Specialist Name Role Phone Pcp, None Selected Primary Care Provider Unavail able Allergies Active Allergy Reactions Criticality Noted Date Comments Penicillin G Hives Medium 12/29/2023 Social History Tobacco Use Types Packs/Day Years Used Date Smoking Tobacco: Never Assessed Comments No Sex and Gender Information Value Date Recorded Sex Assigned at Not on file Legal Sex Female 4:52 PM PDT Gender Identity Not on file Sexual Orientation Not on file Last Filed Vital Signs Vital Sign Reading Time Taken Comments Blood Pressure 129/84 12/29/2023 8:56 PM PDT Pulse 66 12/29/2023 8:56 PM PDT Temperature 36.8 C (98.3 F) 12/29/2023 5:27 PM PDT Respiratory Rate 16 12/29/2023 8:56 PM PDT Oxygen Saturation 100% 12/29/2023 8:56 PM PDT Inhaled Oxygen Concentration - - Weight 68 kg (150 lb) 12/29/2023 5:27 PM PDT Height 165.1 cm (5' 5) 12/29/2023 5:27 PM PDT Body Mass Index 24.96 12/29/2023 5:27 PM PDT Plan of Treatment Health Maintenance Due Date Last Done Comments MMR Vaccines (1 of 1 - Stand huyen series) 1994 Depression Screening (PHQ-2) 2005 Varicella Vaccines (1 of 2 - 13+ 2-dose series) 2006 DTaP,Tdap,and Td Vaccines (1 - Tdap) 2012 Hepatitis B Vaccines (1 of 3 - 19+ 3-dose series) 2012 HPV Vaccines (1 - 3-dose SCD M series) 2020 Cervical Cancer Screening Co mbined Topic 2023 Cervical Cancer-Pap screening 2023 HPV/Cotest 2023 COVID-19 Vaccine (2024-2 6 season) 2024 Influenza Vaccine (#1) 2024 RSV Patients Over 60 years O R qualifying ( Patients) (1 - 1-dose 75+ series) 2068 HM Pneumococcal Combined Age 0-49 Aged Out No longer eligible based on patient's age to complete this topic Hepatitis A Vaccines Aged Out No long er eligible based on patient's age to complete this topic IPV Vaccines Aged Out No longer eligi ble based on patient's age to complete this topic Insurance Care Teams Senior Communications Specialist Relationship Specialty Start Date End Date Pcp, None Selected PCP - General Internal Medicine 12/29/23
[2025-03-18 08:13] VITALS: BP 143/100; PULSE 89; RESP 97; TEMP 36.6; O2SAT 97; BMI 29.9
[2025-03-18 08:57] LABS: Add Manual Diff / Slide Review NO; Hematocrit 38.7 % (36-46); Hemoglobin 13.1 g/dL (12.0-16.0); Lymphocytes Absolute Auto 2400 /uL (1100-4500); Mean Corpuscular HGB Conc 34.0 % (30-36); Mean Corpuscular Hemoglobin 26.7 PG (26-34); Mean Corpuscular Volume 78.5 fL (80-100); Platelet Count 348 X10^3/uL (150-400)
[2025-03-18 09:12] LABS: Alanine Aminotransferase 131 IU/L (<35); Albumin 4.4 g/dL (3.5-5.0); Albumin Globulin Ratio 1.3 (1.0-2.8); Alkaline Phosphatase 95 U/L (38-126); Blood Urea Nitrogen 10 mg/dL (7-17); Calcium 9.7 mg/dL (8.4-10.2); Carbon Dioxide 21 mmol/L (22-32); Chloride 107 mmol/L (98-107); Estimated Glomerular Filt Rate > 60 mL/min (>60); Globulin 3.3 g/dL (1.7-4.1); Glucose 126 mg/dL (70-99); HEMOLYSIS < 15 (0-50); Lipase 36 U/L (23-300); Potassium 3.7 mmol/L (3.4-5.1); Sodium 140 mmol/L (137-145); Total Protein 7.7 g/dL (6.3-8.2)
--- NOTE | 2025-03-18 09:18 | DI.US.S_ITS ---
PROCEDURE: US ABDOMEN LIMITED INDICATIONS: elevated liver enzymes, bilirubin TECHNIQUE: Real-time scanning was performed of the abdominal and retroperitoneal organs, with image documentation. COMPARISON: None. FINDINGS: Liver: Liver is normal in size and homogeneous in echotexture. Gallbladder: No gallstones. No wall thickening. No pericholecystic edema. Negative sonographic Borrero's sign. Biliary ducts: Intrahepatic bile ducts are non-dilated. Extrahepatic bile duct caliber measures 2 mm. Normal is 6-7 mm or less in diameter, or 10 mm or less post-cholecystectomy. Pancreas: Visualized portions of the pancreas are sonographically normal. Miscellaneous: No free abdominal fluid. IMPRESSION: Normal right upper quadrant ultrasound. Dictated by: Todd Lanza M.D. on 03/18/2025 at 11:08 Approved by: Todd Lanza M.D. on 03/18/2025 at 11:18
--- NOTE | 2025-03-18 09:19 | ED_ITS ---
HPI - Abdominal Pain General Chief Complaint: Abdominal Pain Stated Complaint: Liver Ultrasound. R Upper Quadrant. 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 Patient states that she has been having intermittent abdominal pain not associated with eating that would spontaneously resolve. She has been undergoing workup with her primary care physician and presenting for right upper quadrant ultrasound. She denies utilizing any hepatotoxic medication to include Tylenol. Currently she is asymptomatic. She reports she typically has bilateral, nonradiating upper abdominal pain not associated with food. Denies any acholic stools. No fevers, chills, nausea, vomiting. Related Data Home Medications ?Medication ?Instructions ?Recorded ?Confirmed vit no.95-ferrous 1 tab PO DAILY 03/04/24 fumarate 28 mg-folic acid 800 mcg tablet ( Multivitamins) Allergies Allergy/AdvReac Type Severity Reaction Status Date / Time Penicillins Allergy Intermediate Hives Verified 03/18/25 08:13 Review of Systems Review of Systems Narrative: See HPI. Patient History Medical History (Updated 03/18/25 @ 11:37 by Caroline Sabillon MD) hypertension Second degree perineal laceration Vacuum extractor delivery, delivered Gestational hypertension 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 Surgical History (Updated 03/04/24 @ 08:42 by Kiki Whitley RN) History of lingual frenotomy [place] teeth extracted Social History marital status: unmarried,living together household members: significant other and family (S/O's sister) lives independently: Yes caregiver/support person: No housing: house pets and animals: Yes (dogs, cat; pt doesn't manage litter box) education level: college (some college) 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[place], 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) current occupational exposures/hazards: No special erica needs: No travel history: recent ([place], 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) seatbelt use: always water heater temp set < 120 deg: Yes working smoke detector in home: Yes fire extinguisher in home: Yes carbon monox detector in home: Yes firearms in home: Yes firearms unloaded and locked: Yes do you feel safe at home: Yes Smoking Status: Never smoker second hand exposure: No alcohol intake: former (~2 glasses wine/week when not ) substance use type: does not use during the past year weight has: other (wide fluctuations) well-balanced diet: rarely or never daily servings fruits/ve-1 caffeine: Yes (aware of 200mg limit) Type(s) of exercise: resistance training Smoking Status: Never smoker Exam Narrative Exam Narrative: Gen: Well-developed, in no acute distress. Card: Regular rate, no murmurs, rubs, or gallops. Pulm: Clear to auscultation bilaterally. 2+ radial pulses bilaterally. Abd: Soft, nondistended, nontender to palpation. No CVA tenderness. Negative Borrero. Negative McBurney's point. Nontender in epigastric region. Ext: No peripheral edema. Initial Vital Signs Initial Vital Signs: Vital Signs Temperature 98 F 03/18/25 08:13 Pulse Rate 89 03/18/25 08:13 Respiratory Rate 97 H 03/18/25 08:13 Blood Pressure 143/100 H 03/18/25 08:13 Pulse Oximetry 97 03/18/25 08:13 Oxygen Delivery Method Room Air 03/18/25 08:13 Course Course Course Narrative: 1135 reviewed ER workup with patient. Recommend follow up with PCP and further GI workup if indicated. Orders Ordered: ED Orders 03/18/25 08:45 Complete Blood Count AUTO DIFF Stat Comprehensive Metabolic Panel Stat Lipase Stat 03/18/25 09:18 US abdomen limited Stat Discontinued Medications Ondansetron HCl (Ondansetron 4 Mg/2 Ml Inj) 4 mg IV NOW PRN PRN Reason: Nausea And Vomiting Ondansetron HCl (Ondansetron 4 Mg Odt) 4 mg PO NOW PRN PRN Reason: Nausea And Vomiting Vital Signs Vital signs: Vital Signs - 8 hr 03/18/25 11:45 Pulse Rate 78 Respiratory Rate 18 Blood Pressure 140/65 Pulse Oximetry 98 Oxygen Delivery Method Room Air MDM - Abdominal Pain Lab Data 03/18/25 08:45 03/18/25 08:45 Labs: Lab Results 03/18/25 Range/Units 08:45 WBC 6.4 (4.5-11.0) X10^3/uL RBC 4.93 (4.0-5.2) X10^6/uL Hgb 13.1 (12.0-16.0) g/dL Hct 38.7 (36-46) % MCV 78.5 L (80-100) fL MCH 26.7 (26-34) PG MCHC 34.0 (30-36) % RDW 15.0 H (11.6-14.8) % Plt Count 348 (150-400) X10^3/uL Neut % (Auto) 52.7 (50-75) % Lymph % (Auto) 37.9 (25-40) % [place] % (Auto) 6.1 (3-14) % Eos % (Auto) 2.1 (2-4) % Baso % (Auto) 1.2 (0-2) % Neut # (Auto) 3400 (6532-3265) /uL Lymph # (Auto) 2400 (6196-6888) /uL [place] # (Auto) 400 (0-900) /uL Eos # (Auto) 100 (0-450) /uL Baso # (Auto) 100 (0-100) /uL Sodium 140 (137-145) mmol/L Potassium 3.7 (3.4-5.1) mmol/L Chloride 107 (98-107) mmol/L Carbon Dioxide 21 L (22-32) mmol/L BUN 10 (7-17) mg/dL Creatinine 0.58 (0.52-1.04) mg/dL Estimated GFR > 60 (>60) mL/min BUN/Creatinine Ratio 17.2 (6-22) Glucose 126 H (70-99) mg/dL Calcium 9.7 (8.4-10.2) mg/dL Total Bilirubin 0.9 (0.2-1.3) mg/dL AST 43 H (14-36) IU/L ALT 131 H (<35) IU/L Alkaline Phosphatase 95 (38-126) U/L Total Protein 7.7 (6.3-8.2) g/dL Albumin 4.4 (3.5-5.0) g/dL Globulin 3.3 (1.7-4.1) g/dL Albumin/Globulin Ratio 1.3 (1.0-2.8) Lipase 36 (23-300) U/L Point of care testing: Point of Care Testing Test Results Negative Urine Dip Bedside Urine Glucose Negative Bedside Urine Bilirubin - Negative Bedside Urine Ketone - Negative Urine Specific [place] 1.020 Bedside Urine Occult Blood +++ Bedside Urine pH 6.0 Bedside Urine Protein - Negative Bedside Urine Urobilinogen - Negative Bedside Urine Nitrite - Negative Bedside Urine Leukocytes - Negative Esterase Imaging Data US - abdomen: Radiologist's Impression: PROCEDURE: US ABDOMEN LIMITED INDICATIONS: elevated liver enzymes, bilirubin FINDINGS: Liver: Liver is normal in size and homogeneous in echotexture. Gallbladder: No gallstones. No wall thickening. No pericholecystic edema. Negative sonographic Borrero's sign. Biliary ducts: Intrahepatic bile ducts are non-dilated. Extrahepatic bile duct caliber measures 2 mm. Normal is 6-7 mm or less in diameter, or 10 mm or less post-cholecystectomy. Pancreas: Visualized portions of the pancreas are sonographically normal. Miscellaneous: No free abdominal fluid. IMPRESSION: Normal right upper quadrant ultrasound. Dictated by: Todd Lanza M.D. on 03/18/2025 at 11:08 Approved by: Todd Lanza M.D. on 03/18/2025 at 11:1 [facility] Narrative Medical decision making narrative: 29 female with intermittent upper abdominal pain an outpatient workup with elevated liver enzymes, bilirubin, and alk-phos, who presents for right upper quadrant ultrasound. Differential diagnosis: Cholestasis of , symptomatic cholelithiasis, choledocholithiasis, acalculous cholecystitis, hepatitis, other. Considered ACS however patient is currently asymptomatic. less likely ascending cholangitis, biliary atresia, hepatitis (has normal hepatitis panel). Patient presented to ER asymptomatic and hemodynamically stable. Patient presented with outpatient work up revealing: bilirubin 1.4, alk-phos 141, ALT 342, AST 642, GGT 340, bilirubin 1.4. In the ER, CBC without leukocytosis or left shift. No anemia or thrombocytopenia. CMP largely normal to include total bili 0.9, AST 43, ALT 131, alk-phos 95. I reconfirmed the patient is not currently on any medications, or was taking any hepatotoxic medications over the last few months. Given that her laboratory values are trending in the correct direction, she is currently asymptomatic, she has no signs of systemic infection, recommend follow up with her primary care physician and continued outpatient workup. Discharge Plan Departure Patient Disposition: Home Clinical Impression: Elevated liver enzymes Activity Restrictions/Additional Instructions: You were seen in the emergency department at the recommendation of her primary care provider due to elevated liver enzymes. In the ER: -- Your liver enzymes were near normal with mild elevations (Tbili 0.9, AST 43, ALT 131, Alk phos 95) -- Right upper quadrant ultrasound did not reveal any imaging abnormalities of your liver or gallbladder Plan -- Follow-up with your primary care provider for continued management and further recommendations. -- Return to the ER via develop any recurrent severe pain or for any other concerns Prescriptions: No Action PNV no.95-ferrous fumarate-FA [ Multivitamins] 28 mg iron- 800 mcg tablet 1 tab PO DAILY Referrals: Gus Espinoza MD [Primary Care Provider, Medical] Stand Alone Forms: Patient Portal/API
[2025-03-18 11:45] VITALS: BP 140/65; PULSE 78; RESP 18; O2SAT 98
== END 2025-03-18 11:59 | disposition home or self-care (01) ==
PROVIDERS: Emergency Provider Student in an Organized Health Care Education/Training Program; Family Provider Student in an Organized Health Care Education/Training Program; PCP Student in an Organized Health Care Education/Training Program
DX: R74.01 Elevation of levels of liver transaminase levels (principal)
CPT/HCPCS: 36415; 76705; 80053; 81003; 81025; 83690; 85025; 99283; 99284